=== PATIENT | female | born 1955 | race Asian ===

== ENCOUNTER 2017-06-26 10:08 | Emergency (ER) | payer OTHER ==
[~2017-06-26] VITALS: Ht 157.5 cm; Wt 60.9 kg
[2017-06-26] MEDS ORDERED: LISI-660 PO (10:15)
[2017-06-26] MEDS ORDERED: HYDR25TA PO (10:15)
[2017-06-26] MEDS ORDERED: METF500T4 PO (10:15)
[2017-06-26] MEDS ORDERED: PERTUSS(ACELL),DIPH,TET VAC/PF 0.5 ML VIAL IM ONE (11:15)
[2017-06-26 12:06] VITALS: BP 148/90
== END 2017-06-26 12:20 | disposition home or self-care (01) ==
LOC: EMS 10:10
DX: S81.852A Open bite, left lower leg, initial encounter (principal); E11.9 Type 2 diabetes mellitus without complications; I10 Essential (primary) hypertension; W54.0XXA Bitten by dog, initial encounter; Y93.89 Activity, other specified; Y92.89 Other specified places as the place of occurrence of the external cause; Y99.8 Other external cause status
CPT/HCPCS: 90471; 90715; 99283